=== PATIENT | male | born 1955 | race Caucasian/White ===

== ENCOUNTER 2021-05-02 02:26 | Emergency (ER) | payer OTHER ==
[~2021-05-02] VITALS: Ht 185.4 cm; Wt 102.1 kg
[~2021-05-02 02:26] MED LIST: BP PILL; METFORMIN
--- NOTE | 2021-05-02 02:47 | NUR ---
Pt brought back to room ED4A by [employer] feed [employer] operator laura. Pt placed on gurney in pos of comfort and wound exposed for EDMD to assess. Pt is AAOx4 with good color and appearance. VSS, PE WNL. Pt states he doesnt know how he injured foot.
--- NOTE | 2021-05-02 02:50 | NUR ---
EDMD at bedside for assessment and eval.
--- NOTE | 2021-05-02 03:08 | NUR ---
EDMD writing up DC paperwork currently. Pt waiting patiently. EDMD states that Great toe wound will not be sutured due to it being too old. Wound was swabbed for wound culture using aseptic tech and sent to lab.
[2021-05-02] MEDS ORDERED: SULF1TAB48 PO (03:13)
[2021-05-02] MEDS ORDERED: BACITRACIN ZINC OINT 15 GM TUBE TOP ONE (03:15)
--- NOTE | 2021-05-02 03:15 | NUR ---
EDMD ordered wound cleansed, bacitracin applied with simple dressing or a bandaid.
--- NOTE | 2021-05-02 03:27 | NUR ---
Wound on Rt great toe cleansed with NS/betadine soln. Dried with gauze and bacitracin copiously applied, then dressed with xeroform and 1 inch travis dressing. Pt informed to check to see if dressing becomes constrictive. When wrapping I made sure not to wrap too tightly and was loose enough not to become too tight.
[2021-05-02] MEDS ORDERED: BACITRACIN OPHT OINT 3.5 GM TUBE ONE (03:28)
--- NOTE | 2021-05-02 03:30 | NUR ---
Pt given dc instructions and med info. Pt confirmed understanding of aftercare. VSS, PE Wnl, pt aaox4, denies any pain, sob, dizziness or n/v. No s/sx of distress present.
[2021-05-02 03:50] VITALS: BP 145/82
== END 2021-05-02 03:30 | disposition home or self-care (01) ==
LOC: ER 02:32
DX: S91.111A Laceration without foreign body of right great toe without damage to nail, initial encounter (principal); W45.8XXA Other foreign body or object entering through skin, initial encounter; Y92.89 Other specified places as the place of occurrence of the external cause; E11.621 Type 2 diabetes mellitus with foot ulcer; L97.511 Non-pressure chronic ulcer of other part of right foot limited to breakdown of skin; Z79.84 Long term (current) use of oral hypoglycemic drugs; E11.42 Type 2 diabetes mellitus with diabetic polyneuropathy; R03.0 Elevated blood-pressure reading, without diagnosis of hypertension
CPT/HCPCS: 87070; 87077; A4663; J3590